=== PATIENT | male | born 1980 | race Caucasian/White ===

== ENCOUNTER → 2017-01-09 | Outpatient (CLI) | payer OTHER ==
[~2017-01-09] MED LIST: BUPR300T4 PO; CALC-451 PO; CLOM50TA2 PO; LEVO125T45 PO; LISI1TAB7 PO; MULT-717 PO; PRAV20TA2 PO; VITA1TAB3 PO
[2017-01-11 16:43] LABS: BLOOD UREA NITROGEN 11 mg/dL (7-18)
[2017-01-11 17:09] LABS: ASPARTATE AMINO TRANSFERASE 13 U/L (15-37); TOTAL IRON BINDING CAPACITY 325 mcg/dL (250-450)
== END | disposition home or self-care (01) ==
LOC: STAR 16:00
PROVIDERS: ATTEND Thoracic Surgery (Cardiothoracic Vascular Surgery)
DX: Z01.818 Encounter for other preprocedural examination (principal); I10 Essential (primary) hypertension
CPT/HCPCS: 36415; 71020; 80053; 80061; 82306; 82607; 82746; 83540; 83550; 83970; 84134; 84425; 85025; 93005